=== PATIENT | male | born 1930 | race Caucasian/White ===

== ENCOUNTER 2018-09-01 11:04 | Inpatient (IN) | payer MEDICARE, OTHER ==
[~2018-09-01] VITALS: Ht 167.6 cm; Wt 51.3 kg
[2018-09-01] MEDS ORDERED: ASPIRIN 81MG TABLET PO ONE (12:00)
[2018-09-01] MEDS: METOPROLOL TARTRATE 5MG/5ML VIAL IV SCH ×2 (12:10→14:20)
[2018-09-01 12:26] LABS: BASOPHILS % 0.4 % (0.0-2.0); EOSINOPHILS % 0.4 % (0.0-5.0); HEMATOCRIT. 44.9 % (42.0-52.0); HEMOGLOBIN. 15.1 g/dL (14.0-18.0); LYMPHOCYTES % 12.3 % (20.0-50.0); MEAN CORPUSCULAR HEMOGLOBIN 36.2 pg (28.0-32.0); MEAN CORPUSCULAR VOLUME 107.6 fL (80.0-94.0); MEAN PLATELET VOLUME 9.4 fl (7.4-10.4); MONOCYTES % 7.1 % (2.0-8.0); NEUTROPHILS % 79.8 % (40.0-76.0); PLATELET 196 x1000/uL (130-400); RED BLOOD CELL COUNT 4.17 mill/uL (4.7-6.1); RED CELL DISTRIBUTION WIDTH 15.9 % (11.6-14.6)
[2018-09-01 12:34] LABS: CHLORIDE 107 mEq/L (98-107)
[2018-09-01 12:36] LABS: INR 1.3; PARTIAL THROMBOPLASTIN TIME 26.5 sec (23.4-31.0); PROTHROMBIN TIME 12.9 sec (9.1-11.1)
[2018-09-01] MEDS ORDERED: POTASSIUM CHLORIDE 20MEQ TABLET SR PO ONE (14:00)
[2018-09-01 16:50] VITALS: BP 150/101
[2018-09-01 20:00] VITALS: BP 145/104
[2018-09-01] MEDS ORDERED: ENOXAPARIN 30MG/0.3ML SYR SUBCUT SCH (21:00)
[2018-09-01] MEDS: METOPROLOL TARTRATE 50MG TABLET PO SCH (21:47)
[2018-09-01] MEDS: DILTIAZEM HCL 90MG CAPSULE SR 12HR PO SCH (21:48)
[2018-09-01 23:30] VITALS: BP 150/103
[2018-09-01] MEDS ORDERED: DILTIAZEM HCL 5MG/ML 5ML VIAL IV NR ×2 (23:30→23:45)
[2018-09-01] MEDS ORDERED: DILTIAZEM HCL 120MG CAPSULE CD 24HR PO SCH (23:30)
[2018-09-01 23:50] VITALS: BP 144/104
[2018-09-01] MEDS: LOSARTAN POTASSIUM 25 MG TABLET PO SCH (23:54)
[2018-09-02] VITALS (7 sets, daily range): BP systolic 109–144; BP diastolic 66–104
[2018-09-02] MEDS ORDERED: KCL 20MEQ/100ML PREMIX 100 ML IV NR (02:00)
[2018-09-02] MEDS: LOSARTAN POTASSIUM 25 MG TABLET PO SCH ×2 (08:30→16:28)
[2018-09-02] MEDS: DILTIAZEM HCL 90MG CAPSULE SR 12HR PO SCH ×2 (08:32→20:52)
[2018-09-02] MEDS: PANTOPRAZOLE 40MG DR TABLET PO SCH (08:32)
[2018-09-02] MEDS: METOPROLOL TARTRATE 50MG TABLET PO SCH ×2 (08:32→20:52)
[2018-09-02] MEDS: ENOXAPARIN 60MG/0.6ML SYR SUBCUT SCH ×2 (16:30→20:53)
[2018-09-02] MEDS ORDERED: GLIP5TAB12 MT (19:58)
[2018-09-02] MEDS ORDERED: FINA1TAB18 PO (19:58)
[2018-09-02] MEDS ORDERED: ALLO300T2 PO (19:58)
[2018-09-02] MEDS ORDERED: LORAZEPAM 2MG/ML CPJ IM PRN ×2 (20:15→20:30)
[2018-09-02] MEDS ORDERED: LORAZEPAM 0.5MG TABLET PO NR (20:15)
[2018-09-02] MEDS ORDERED: LORAZEPAM 2MG/ML CPJ IM NR (20:23)
[2018-09-02] MEDS: ATORVASTATIN CALCIUM 20MG TABLET PO SCH (20:51)
[2018-09-02 22:37] LABS: HEMATOCRIT 39.8 % (42.0-52.0); HEMOGLOBIN 13.2 g/dL (14.0-18.0); MEAN CORPUSCULAR VOLUME 108.4 fL (80.0-94.0); PLATELET 199 x1000/uL (130-400); RED BLOOD CELL COUNT 3.67 mill/uL (4.7-6.1); RED CELL DISTRIBUTION WIDTH 15.7 % (11.6-14.6)
[2018-09-02 22:50] LABS: CHLORIDE 106 mEq/L (98-107)
[2018-09-02 23:04] LABS: T4 FREE 1.12 ng/dL (0.76-1.46)
[2018-09-03 04:00] VITALS: BP 142/74
[2018-09-03 06:24] LABS: CHLORIDE 107 mEq/L (98-107)
[2018-09-03 06:32] LABS: CREATINE KINASE 103 IU/L (39-308)
[2018-09-03 06:33] LABS: BASOPHILS % 0.6 % (0.0-2.0); EOSINOPHILS % 3.9 % (0.0-5.0); HEMATOCRIT. 38.5 % (42.0-52.0); HEMOGLOBIN. 12.9 g/dL (14.0-18.0); LYMPHOCYTES % 27.3 % (20.0-50.0); MEAN CORPUSCULAR HEMOGLOBIN 36.5 pg (28.0-32.0); MEAN CORPUSCULAR VOLUME 108.9 fL (80.0-94.0); MEAN PLATELET VOLUME 9.8 fl (7.4-10.4); MONOCYTES % 12.7 % (2.0-8.0); NEUTROPHILS % 55.5 % (40.0-76.0); PLATELET 151 x1000/uL (130-400); RED BLOOD CELL COUNT 3.54 mill/uL (4.7-6.1); RED CELL DISTRIBUTION WIDTH 15.9 % (11.6-14.6)
[2018-09-03 06:41] LABS: CREATINE KINASE MB FRACTION 3.8 ng/mL (0.5-3.6)
[2018-09-03 08:00] VITALS: BP 112/67
[2018-09-03] MEDS: PANTOPRAZOLE 40MG DR TABLET PO SCH (09:00)
[2018-09-03] MEDS: DILTIAZEM HCL 90MG CAPSULE SR 12HR PO SCH (09:00)
[2018-09-03] MEDS: METOPROLOL TARTRATE 50MG TABLET PO SCH ×2 (09:00→20:15)
[2018-09-03] MEDS: LOSARTAN POTASSIUM 25 MG TABLET PO SCH ×2 (09:00→16:18)
[2018-09-03] MEDS: ENOXAPARIN 60MG/0.6ML SYR SUBCUT SCH (09:00)
[2018-09-03] MEDS ORDERED: POTASSIUM CHLORIDE 20MEQ TABLET SR PO NR (11:30)
[2018-09-03 11:44] VITALS: BP 147/77
[2018-09-03] MEDS: DILTIAZEM HCL 60MG TABLET PO SCH ×2 (13:32→21:58)
[2018-09-03 15:13] VITALS: BP 147/77
[2018-09-03] MEDS: LORAZEPAM 2MG/ML CPJ IM PRN (19:26)
[2018-09-03 20:00] VITALS: BP 121/70
[2018-09-03] MEDS: ATORVASTATIN CALCIUM 20MG TABLET PO SCH (20:15)
[2018-09-03 22:08] LABS: VITAMIN B12 SERUM 228 pg/mL (211-911)
[2018-09-04] VITALS (7 sets, daily range): BP systolic 119–169; BP diastolic 64–89
[2018-09-04] MEDS: LORAZEPAM 2MG/ML CPJ IM PRN (05:48)
[2018-09-04] MEDS: DILTIAZEM HCL 60MG TABLET PO SCH ×3 (05:58→15:08)
[2018-09-04 06:37] LABS: CLARITY URINE CLEAR (CLEAR); COLOR URINE YELLOW (YELLOW); KETONES URINE 1+ (NEGATIVE); LEUKOCYTE ESTERASE URINE NEGATIVE (NEGATIVE); NITRITE URINE NEGATIVE (NEGATIVE); OCCULT BLOOD URINE NEGATIVE (NEGATIVE); PH URINE 6.5 (4.5-8.0); PROTEIN URINE NEGATIVE (NEGATIVE); SPECIFIC GRAVITY URINE 1.013 (1.005-1.030)
[2018-09-04 06:51] LABS: BASOPHILS % 0.6 % (0.0-2.0); EOSINOPHILS % 4.3 % (0.0-5.0); HEMATOCRIT. 41.6 % (42.0-52.0); HEMOGLOBIN. 14.2 g/dL (14.0-18.0); LYMPHOCYTES % 14.6 % (20.0-50.0); MEAN CORPUSCULAR HEMOGLOBIN 36.8 pg (28.0-32.0); MEAN CORPUSCULAR VOLUME 108.2 fL (80.0-94.0); MEAN PLATELET VOLUME 9.3 fl (7.4-10.4); MONOCYTES % 10.5 % (2.0-8.0); PLATELET 172 x1000/uL (130-400); RED BLOOD CELL COUNT 3.85 mill/uL (4.7-6.1); RED CELL DISTRIBUTION WIDTH 15.6 % (11.6-14.6)
[2018-09-04 06:56] LABS: CHLORIDE 107 mEq/L (98-107)
[2018-09-04] MEDS: METOPROLOL TARTRATE 50MG TABLET PO SCH ×2 (09:00→21:01)
[2018-09-04] MEDS: LOSARTAN POTASSIUM 25 MG TABLET PO SCH ×2 (09:04→17:00)
[2018-09-04] MEDS: PANTOPRAZOLE 40MG DR TABLET PO SCH (09:05)
[2018-09-04] MEDS ORDERED: POTASSIUM CHLORIDE 20MEQ TABLET SR PO NR (09:45)
[2018-09-04] MEDS ORDERED: MAGNESIUM 2 G PREMIX 50 ML IV NR (14:00)
[2018-09-04] MEDS ORDERED: LORAZEPAM 2MG/ML CPJ IM PRN (20:15)
[2018-09-04] MEDS: ATORVASTATIN CALCIUM 20MG TABLET PO SCH (21:01)
[2018-09-04] MEDS ORDERED: DILTIAZEM HCL 30MG TABLET PO SCH (22:00)
== END 2018-09-04 21:52 | DRG 308 ==
LOC: ER 11:04 → 8WST 14:28 → EDBEDREQ 14:31 → ENRESERV 15:21 → 8WST 09-03 20:05
PROVIDERS: ADMIT Internal Medicine; ATTEND Internal Medicine
DX: I48.91 Unspecified atrial fibrillation (principal); I50.33 Acute on chronic diastolic (congestive) heart failure; D68.59 Other primary thrombophilia; R17 Unspecified jaundice; Z66 Do not resuscitate; E87.6 Hypokalemia; I25.10 Atherosclerotic heart disease of native coronary artery without angina pectoris; F03.90 Unspecified dementia, unspecified severity, without behavioral disturbance, psychotic disturbance, mood disturbance, and anxiety; E86.0 Dehydration; R26.81 Unsteadiness on feet; D53.9 Nutritional anemia, unspecified; E78.5 Hyperlipidemia, unspecified; E83.42 Hypomagnesemia; I11.0 Hypertensive heart disease with heart failure; W19.XXXA Unspecified fall, initial encounter; Y93.89 Activity, other specified; Y99.8 Other external cause status; Y92.009 Unspecified place in unspecified non-institutional (private) residence as the place of occurrence of the external cause; Z78.1 Physical restraint status
CPT/HCPCS: 36415; 71045; 72170; 80048; 80061; 82140; 82550; 82553; 82607; 83605; 83735; 83880; 84439; 84443; 84481; 84484; 85027; 93005; 93306; 93971; 96374; 97116; 97162; 99285; J1650; J2060; J3475; J3480; J3490